=== PATIENT | male | born 1980 | race African-American/Black ===

== ENCOUNTER 2018-09-02 11:50 | Emergency (ER) | payer SELFPAY ==
[~2018-09-02] VITALS: Ht 180.3 cm; Wt 98.0 kg
[2018-09-02] MEDS ORDERED: BENZOCAINE/LANOLIN/ALOE VERA SPRAY TOP ONE (18:15)
[2018-09-02] MEDS ORDERED: LIDOCAINE HCL 1% 20ML VIAL (Pyxis) INJ INFIL ONE (18:15)
[2018-09-02] MEDS ORDERED: DEXAMETHASONE 0.5MG/5ML ORAL SYR PO ONE (18:15)
[2018-09-02] MEDS ORDERED: CEFTRIAXONE SODIUM 1 G/VIAL IM ONE (18:15)
[2018-09-02] MEDS ORDERED: DEXAMETHASONE 4MG/ML 1ML VIAL IM ONE (19:15)
[2018-09-02 19:42] VITALS: BP 125/81
== END 2018-09-02 19:44 | disposition home or self-care (01) ==
LOC: ER 11:50
DX: J36 Peritonsillar abscess (principal); F12.10 Cannabis abuse, uncomplicated
CPT/HCPCS: 96372; 99283; J0696; J1100; J3490; J8540